=== PATIENT | female | born 1980 | race Caucasian/White ===

== ENCOUNTER 2016-08-03 15:24 | Emergency (ER) | payer OTHER ==
[2016-08-03 15:32] VITALS: BP 145/83; PULSE 76; TEMP 98.1; BMI 24.5
[2016-08-03] MEDS ORDERED: KETOROLAC TROMETHAMINE 60 MG/2 ML VIAL IM ONE (17:07)
[2016-08-03] MEDS ORDERED: KETOROLAC TROMETHAMINE 60 MG/2 ML VIAL ONE (17:11)
--- NOTE | 2016-08-03 17:11 | PDOC ---
History of Present Illness - General Chief Complaint: Pain Stated Complaint: RT SHOULDER PAIN Time Seen by Provider: 08/03/16 16:16 History Source: Patient Exam Limitations: No Limitations - History of Present Illness Initial Comments: 08/03/16 17:08 Chief complaint: Right shoulder pain 3 days History of present illness: Patient is a 35-year-old female with history HTN and tubal ligation here today complaining of sudden onset of right shoulder pain 3 days. Patient denies any heavy lifting or any injury to her right shoulder. Patient reports that pain radiates down rt. upper arm slightly. She reports the pain is worse with trying to lift her arm in any direction and is and 8 out of 10. Patient denies any numbness of her arm. Patient denies any neck pain. 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 08/03/16 17:11 08/03/16 17:14 08/03/16 18:22 Occurred: reports: other (3 days ago ) Severity: reports: moderate Upper Extremity Pain Location: right: shoulder Method of Injury: reports: unknown Extremity Pain Location - Extremity Pain Location Extremity Pain Locations: right: other (shoulder and upper rt. lateral arm ) Past History - Past Medical History Allergies/Adverse Reactions: Allergies Allergy/AdvReac Type Severity Reaction Status Date / Time No Known Drug Allergies Allergy Verified 08/03/16 15:28 Home Medications: Ambulatory Orders NK [No Known Home Medication] 08/03/16 Anemia: No Asthma: No Cancer: No Cardiac Disorders: No CVA: No COPD: No CHF: No Dementia: No Diabetes: No GI Disorders: No Disorders: No HTN: Yes Hypercholesterolemia: No Liver Disease: No Seizures: No Thyroid Disease: No - Surgical History Abdominal Surgery: Yes (Abdominoplasty 09/2014) Cholecystectomy: Yes - Immunization History Immunization Up to Date: Yes - Psycho/Social/Smoking Cessation Hx Anxiety: No Suicidal Ideation: No Smoking History: Never smoked Have you smoked in the past 12 months: No Information on smoking cessation initiated: No Hx Alcohol Use: No Drug/Substance Use Hx: No Substance Use Type: Alcohol Hx Substance Use Treatment: No Review of Systems - Review of Systems Able to Perform ROS?: Yes Constitutional: No: Symptoms Reported HEENTM: No: Symptoms Reported Respiratory: No: Symptoms reported Cardiac (ROS): No: Symptoms Reported ABD/GI: No: Symptoms Reported Musculoskeletal: Yes: Joint Pain (rt. shoulder pain radiates to rt. upper proximal arm ). No: Joint Swelling Integumentary: No: Symptoms Reported *Physical Exam - Vital Signs Last Vital Signs Temp Pulse Resp BP Pulse Ox 98.1 F 76 18 145/83 100 08/03/16 15:29 08/03/16 15:29 08/03/16 15:29 08/03/16 15:29 08/03/16 15:29 - Physical Exam General Appearance: Yes: Appropriately Dressed Neck: negative: Tender, Decreased range of motion, Rigidity, Tender lateral, Tender midline Respiratory/Chest: positive: Lungs Clear, Normal Breath Sounds. negative: Chest Tender, Respiratory Distress Cardiovascular: positive: Regular Rhythm, Regular Rate, S1, S2 Extremity: positive: Normal Capillary Refill, Normal Inspection, Tender (rt. anterior shoulder. rt. upper lateral proximal upper arm ). negative: Normal Range of Motion (at rt. shoulder ) Integumentary: positive: Normal Color Neurologic: positive: Alert, Normal Response, Respond to painful stimul (right shoulder, upper rt. arm ), Responsive Procedures - Consent Consent obtained: From Patient - Splinting Splint Location: Right: Forearm (shoulder immobilizer ) Pre-Proc Neuro Vasc Exam: normal Sling: No Complications: No Progress: 08/03/16 18:23 shoulder elastic immobilizer applied to right arm ED Treatment Course - RADIOLOGY Radiology Studies Ordered: Category Date Time Status SHOULDER-LEFT [RAD] Stat Radiology 08/03/16 17:06 Ordered Medical Decision Making - Medical Decision Making 08/03/16 17:13 Patient is a 35-year-old female with history of tubal ligation here today complaining of sudden onset of right shoulder pain 3 days. Patient denies any heavy lifting or any injury to her right shoulder. Patient reports that pain radiates down rt. upper arm slightly. She reports the pain is worse with trying to lift her arm in any direction and is and 8 out of 10. Patient denies any numbness of her arm. Patient denies any neck pain. 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 shoulder pain PLAN: toradol 60 mg IM now xray right shoulder negative shoulder immobilizer right applied follow up with ortho 08/03/16 18:24 *DC/Admit/Observation/Transfer Diagnosis at time of Disposition: Shoulder pain, right Qualifiers: Chronicity: acute Qualified Code(s): M25.511 - Pain in right shoulder - Discharge Dispostion Disposition: HOME Condition at time of disposition: Stable - Patient Instructions Additional Instructions: Wear shoulder immobilizer during the day might be helpful to this sleep and a slightly's seated up positioned with pillow under her forearm Follow up at [facility] orthopedic clinic at [phone] as soon as possible Avoid using right arm as much as possible Return to emergency room if symptoms worsen Patient voiced understanding of discharge instructions and all questions were answered Usar el inmovilizador del hombro meryl el da puede ser til para jose sueo y un poco est sentado con lucas almohada debajo del antebrazo Lara un seguimiento en la clnica ortopdica de [facility] al [phone] johnson pronto pranav sea posible Evite usar el brazo derecho tanto pranav sea posible Regreso a la harvey de emergencias si los sntomas empeoran Comprensin del paciente sobre las instrucciones de avni y todas las preguntas fueron contestadas
== END 2016-08-03 18:37 | disposition home or self-care (01) ==
LOC: JERFT 15:24
PROC: 2W3AX1Z Immobilization of Right Upper Arm using Splint (ICD-10-PCS; principal; 2016-08-03)
DX: M25.511 Pain in right shoulder (principal); I10 Essential (primary) hypertension
CPT/HCPCS: 73030-TC-RT; 99281-25

== ENCOUNTER 2018-04-26 20:33 | Emergency (ER) | payer OTHER ==
[2018-04-26 20:45] VITALS: BP 153/84; PULSE 73; TEMP 98; BMI 24.5
[2018-04-26] MEDS ORDERED: SODIUM CHLORIDE 0.9% 500 ML INFUS.BAG IV ONE (21:15)
[2018-04-26] MEDS ORDERED: ACETAMINOPHEN 1000 MG/100 ML VIAL (NON FORMULARY) IVPB ONE (21:15)
--- NOTE | 2018-04-26 21:30 | PDOC ---
History of Present Illness - General Chief Complaint: Pain Stated Complaint: BERTA LEG PAIN Time Seen by Provider: 04/26/18 20:51 History Source: Patient Exam Limitations: Language Barrier - History of Present Illness Initial Comments: 37 yo F w a pmh of HTN is here with the CC of her face feeling warm, dizziness, bilateral foot pain, and R calf pain. She denies any chest pain, shortness of breath, difficulty breathing, hx of blood clots, hormone usage, or recent travel. Denies any recent fevers chills or infections. Denies any history of anaphylaxis or other allergies. PCP: Brayden Broderick Hx; drinks alcohol recreationally. Denies using cigarettes or illicit drugs. Allergies: NKA, NKDA Past History - Past Medical History Allergies/Adverse Reactions: Allergies Allergy/AdvReac Type Severity Reaction Status Date / Time No Known Drug Allergies Allergy Verified 04/26/18 20:45 Home Medications: Ambulatory Orders Cyclobenzaprine HCl 5 mg PO HS 04/26/18 Losartan 50Mg/Hctz 12.5MG [Hyzaar -] 1 tab PO DAILY 04/26/18 Anemia: No Asthma: No Cancer: No Cardiac Disorders: No CVA: No COPD: No CHF: No Dementia: No Diabetes: No GI Disorders: No Disorders: No HTN: Yes Hypercholesterolemia: No Liver Disease: No Seizures: No Thyroid Disease: No - Surgical History Abdominal Surgery: Yes (Abdominoplasty 09/2014) Cholecystectomy: Yes - Immunization History Immunization Up to Date: Yes - Suicide/Smoking/Psychosocial Hx Smoking History: Never smoked Have you smoked in the past 12 months: No Hx Alcohol Use: No Drug/Substance Use Hx: No Substance Use Type: Alcohol Hx Substance Use Treatment: No Review of Systems - Review of Systems Comments:: CONSTITUTIONAL: Absent: fever, no chills, no fatigue EYES: Absent: visual changes ENT: Absent: ear pain, no sore throat CARDIOVASCULAR: Absent: chest pain, no palpitations RESPIRATORY: Absent: cough, no SOB GI: Absent: abdominal pain, no nausea, no vomiting, no constipation, no diarrhea GENITOURINARY: Absent: dysuria, no frequency, no hematuria MUSKULOSKELETAL: Present: foot pain, R calf pain Absent: back pain, no arthralgia, no myalgia SKIN: Absent: rash NEURO: Absent: headache *Physical Exam - Vital Signs Last Vital Signs Temp Pulse Resp BP Pulse Ox 98 F 73 18 153/84 98 04/26/18 20:41 04/26/18 20:41 04/26/18 20:41 04/26/18 20:41 04/26/18 20:41 - Physical Exam Comments: GENERAL: Well-appearing, well-nourished. No apparent distress. HEENT: Normocephalic, atraumatic. PERRL, EOM intact. CARDIOVASCULAR: Normal S1, S2. Regular rate and rhythm. PULMONARY: Clear to auscultation bilaterally. ABDOMEN: Soft, non-distended, non-tender. EXTREMITIES: Normal ROM in all four extremities. No gross deformities. SKIN: Warm, dry. No rash NEUROLOGICAL: No focal neurological deficits. Left calf: No erythema, Negative Javier sign. Not bigger than rght calf. ED Treatment Course - LABORATORY CBC & Chemistry Diagram: 04/26/18 22:25 04/26/18 22:25 - RADIOLOGY Radiology Studies Ordered: Category Date Time Status DUPLEX VASCUL US-1 LEG [US] Stat Ultrasound 04/26/18 21:14 Ordered Medical Decision Making - Medical Decision Making 37 yo F w a pmh of HTN is here with the CC of her face feeling warm, dizziness, bilateral foot pain, and R calf pain. DD includes but not limited to: DVT, MSK pain, allergy, vasovagal symptoms. Plan: EKG, Duplex, fingerstick, toradol, re-assess. Duplex did not find any DVT. There was a "large heterogenous irregular shaped collection within the left proximal calf muscles which could represent a seroma , resolving hematoma and is less likely an abscess. Patient feels much better after toradol and would like to get out of here. Will DC w pcp FU, tylenol and advil for pain control. *DC/Admit/Observation/Transfer Diagnosis at time of Disposition: Calf pain - Discharge Dispostion Disposition: HOME Condition at time of disposition: Improved Decision to Admit order: No - Referrals Referrals: Brayden Ham MD [Primary Care Provider] - - Patient Instructions Printed Discharge Instructions: DI for Calf Muscle Strain Additional Instructions: You came into the ER with Right sided calf pain. We did an ultrasound which showed you do not have a blood clot. They did find something abnormal in your calf which you need to follow up with your primary care doctor. We gave you toradol which helped your pain very much. Please take advil/ibuprofen/motrin or tylenol as needed for pain control. Please come back to the emergency room if your pain worsens, you develop a high fever, have shortness of breath or difficulty breathing or any other new or worsening concerns. Thank you for coming to the [facility] ER. We hope you feel better soon! Print Language: CZECH - Post Discharge Activity
--- NOTE | 2018-04-26 21:34 | PDOC ---
Attending Attestation - Resident Resident Name: Boby Hackett - ED Attending Attestation I have performed the following: I have examined & evaluated the patient, The case was reviewed & discussed with the resident, I agree w/resident's findings & plan, Exceptions are as noted - HPI HPI: 37 yo F recently diagnosed with HTN presents with multiple complaints- pain to the tops of her feet B/L, R posterior leg pain, and flushing in her face. No recent illness, fever. No OCP use. LMP ~3 weeks ago. - Physicial Exam PE: GENERAL: Awake, alert, and fully oriented, in no acute distress HEAD: No signs of trauma EYES: PERRLA, EOMI, sclera anicteric, conjunctiva clear ENT: Auricles normal inspection, hearing grossly normal, nares patent, oropharynx clear without exudates. Moist mucosa NECK: Normal ROM, supple, no lymphadenopathy, JVD, or masses LUNGS: Breath sounds equal, clear to auscultation bilaterally. No wheezes, and no crackles HEART: Regular rate and rhythm, normal S1 and S2, no murmurs, rubs or gallops ABDOMEN: Soft, nontender, normoactive bowel sounds. No guarding, no rebound. No masses EXTREMITIES: Normal range of motion, no edema. No clubbing or cyanosis. No cords, erythema. +Tenderness to R popliteal area- no masses, no erythema. NEUROLOGICAL: Cranial nerves II through XII grossly intact. Normal speech, normal gait. Motor and sensation intact. SKIN: Warm, Dry, normal turgor, no rashes or lesions noted. - Medical Decision Making Pt with multiple somatic complaints, however, found to have R posterior knee pain. Will obtain duplex to r/o DVT. If neg, will DC home.
[2018-04-26] MEDS ORDERED: KETOROLAC TROMETHAMINE 60 MG/2 ML VIAL IM ONE (21:37)
[2018-04-26] MEDS ORDERED: KETOROLAC TROMETHAMINE 60 MG/2 ML VIAL ONE (22:11)
[2018-04-26] MEDS ORDERED: ACETAMINOPHEN INJECTION 100 ML IVPB ONE (22:29)
[2018-04-26 22:34] LABS: BASO % 0.9 % (0-2.0); EOS % 2.3 % (0-4.5); HEMATOCRIT 38.7 % (32.4-45.2); HEMOGLOBIN 13.3 GM/dL (10.7-15.3); LYMPH % 31.8 % (8-40); MCH 29.7 pg (25.7-33.7); MCHC 34.4 g/dl (32.0-36.0); MEAN CELL VOLUME 86.4 fl (80-96); MONO % 7.4 % (3.8-10.2); NEUT % 57.6 % (42.8-82.8); PLATELET COUNT 364 K/MM3 (134-434); RBC 4.48 M/mm3 (3.60-5.2); RDW 13.5 % (11.6-15.6); WHITE BLOOD COUNT 10.7 K/mm3 (4.0-10.0)
[2018-04-26 22:58] LABS: ALBUMIN 4.1 g/dl (3.4-5.0); ALK PHOS 87 U/L (45-117); ANION GAP 8 MMOL/L (8-16); BILIRUBIN,TOTAL 0.3 mg/dL (0.2-1); BLOOD UREA NITROGEN 21 mg/dL (7-18); CALCIUM 9.5 mg/dL (8.5-10.1); CHLORIDE 104 mmol/L (98-107); CO2 28 mmol/L (21-32); CREATININE 0.9 mg/dL (0.55-1.3); GLUCOSE,RANDOM 77 mg/dL (74-106); POTASSIUM 4.2 mmol/L (3.5-5.1); SGOT/AST 16 U/L (15-37); SGPT/ALT 29 U/L (13-61); SODIUM 140 mmol/L (136-145)
--- NOTE | 2018-04-28 10:34 | EKG ---
Test Reason : Blood Pressure : / mmHG Vent. Rate : 061 BPM Atrial Rate : 061 BPM P-R Int : 144 ms QRS Dur : 080 ms QT Int : 398 ms P-R-T Axes : 043 027 047 degrees QTc Int : 400 ms NORMAL SINUS RHYTHM NONSPECIFIC T WAVE ABNORMALITY ABNORMAL ECG NO PREVIOUS ECGS AVAILABLE Confirmed by NOHEMY BUTLER MD ([id number]) on 04/28/2018 10:33:57 AM Referred By: Confirmed By:NOHEMY BUTLER MD
== END 2018-04-27 00:04 | disposition home or self-care (01) ==
LOC: JER 20:33
PROC: 3E0233Z Introduction of Anti-inflammatory into Muscle, Percutaneous Approach (ICD-10-PCS; principal; 2018-04-26)
PROC: 3E033NZ Introduction of Analgesics, Hypnotics, Sedatives into Peripheral Vein, Percutaneous Approach (ICD-10-PCS; 2018-04-26)
DX: S86.112A Strain of other muscle(s) and tendon(s) of posterior muscle group at lower leg level, left leg, initial encounter (principal); X58.XXXA Exposure to other specified factors, initial encounter; Y93.89 Activity, other specified; Y92.89 Other specified places as the place of occurrence of the external cause; Y99.8 Other external cause status
CPT/HCPCS: 36415; 80053; 82962; 84703; 85025; 93005; 93010; 93971-TC; 96374; 99281-25; J0131

== ENCOUNTER 2024-03-25 10:09 | Emergency (ER) | payer OTHER ==
[2024-03-25 10:16] VITALS: RESP 20; TEMP 98.1; BMI 25.1
[2024-03-25] MEDS: SODIUM CHLORIDE 1,000 ML IV STA (11:46)
[2024-03-25 11:54] LABS: BASO % 0.7 % (0-2.0); EOS % 1.9 % (0-4.5); HEMATOCRIT 34.5 % (32.4-45.2); HEMOGLOBIN 11.8 GM/dL (10.7-15.3); LYMPH % 30.6 % (8-40); MCH 29.7 pg (25.7-33.7); MCHC 34.2 g/dl (32.0-36.0); MEAN PLT VOLUME 7.7 fl (7.5-11.1); MONO % 8.5 % (3.8-10.2); NEUT % 58.3 % (42.8-82.8); PLATELET COUNT 358 10^3/uL (134-434); RBC 3.97 M/mm3 (3.60-5.2); WHITE BLOOD COUNT 7.9 K/mm3 (4.0-10.0)
[2024-03-25 12:06] LABS: INR 0.96 (0.83-1.09); PROTHROMBIN TIME (PATIENT) 10.9 SEC (9.7-13.0)
[2024-03-25 12:19] LABS: POTASSIUM 4.5 mmol/L (3.5-5.1)
[2024-03-25 12:23] LABS: ALBUMIN 3.8 g/dl (3.4-5.0); CALCIUM 9.2 mg/dL (8.5-10.1)
[2024-03-25 12:24] LABS: BLOOD UREA NITROGEN 15.7 mg/dL (7-18)
[2024-03-25 12:27] LABS: CREATININE 0.7 mg/dL (0.55-1.3)
[2024-03-25 12:28] LABS: BILIRUBIN,TOTAL 0.5 mg/dL (0.2-1)
[2024-03-25 12:29] LABS: TOT PROT 6.7 g/dl (6.4-8.2)
[2024-03-25] MEDS: ONDANSETRON 4 MG/2 ML VIAL IVPUSH ONE (12:31)
[2024-03-25 13:16] LABS: HIV INTERPRETATION NEGATIVE (NEGATIVE)
[2024-03-25 13:35] VITALS: BP 129/80; PULSE 73
[2024-03-25 15:11] LABS: BASO % 0.8 % (0-2.0); HEMATOCRIT 32.5 % (32.4-45.2); HEMOGLOBIN 11.2 GM/dL (10.7-15.3); LYMPH % 29.6 % (8-40); MCH 29.7 pg (25.7-33.7); MCHC 34.4 g/dl (32.0-36.0); MEAN CELL VOLUME 86.3 fl (80-96); MEAN PLT VOLUME 7.3 fl (7.5-11.1); NEUT % 59.6 % (42.8-82.8); PLATELET COUNT 337 10^3/uL (134-434); RBC 3.76 M/mm3 (3.60-5.2); RDW 13.7 % (11.6-15.6); WHITE BLOOD COUNT 9.2 K/mm3 (4.0-10.0)
== END 2024-03-25 16:03 | disposition home or self-care (01) ==
LOC: JER 10:09
PROC: 3E0337Z Introduction of Electrolytic and Water Balance Substance into Peripheral Vein, Percutaneous Approach (ICD-10-PCS; principal; 2024-03-25)
DX: K62.5 Hemorrhage of anus and rectum (principal); R10.84 Generalized abdominal pain; R11.0 Nausea
CPT/HCPCS: 36415; 74177-TC; 80053; 84703; 85025; 85610; 86803; 86850; 86900; 86901; 87389; 93005; 93010; 99285-25

== ENCOUNTER 2024-04-22 04:28 | Day surgery (SDC) | payer OTHER ==
[2024-04-21 11:46] VITALS: BMI 25.3
[2024-04-22 13:26] VITALS: TEMP 98.4
[2024-04-22 14:11] VITALS: BP 98/64; PULSE 62; RESP 18
== END 2024-04-22 14:15 | disposition home or self-care (01) ==
LOC: JASU-ENDO 04:28
PROVIDERS: ATTEND Internal Medicine Gastroenterology
PROC: 0DB98ZX Excision of Duodenum, Via Natural or Artificial Opening Endoscopic, Diagnostic (ICD-10-PCS; 2024-04-22)
PROC: 0DB78ZX Excision of Stomach, Pylorus, Via Natural or Artificial Opening Endoscopic, Diagnostic (ICD-10-PCS; 2024-04-22)
PROC: 0DB68ZX Excision of Stomach, Via Natural or Artificial Opening Endoscopic, Diagnostic (ICD-10-PCS; 2024-04-22)
PROC: 0DBN8ZX Excision of Sigmoid Colon, Via Natural or Artificial Opening Endoscopic, Diagnostic (ICD-10-PCS; principal; 2024-04-22 11:00)
DX: Z12.11 Encounter for screening for malignant neoplasm of colon (principal); K63.5 Polyp of colon; K57.30 Diverticulosis of large intestine without perforation or abscess without bleeding; K29.50 Unspecified chronic gastritis without bleeding
CPT/HCPCS: 81025; 88305-TC; 88342-TC